=== PATIENT | female | born 1945 | race Caucasian/White ===

== ENCOUNTER 2019-09-09 09:52 | Day surgery (SDC) | payer MEDICARE ==
[2019-09-06 12:44] LABS: BASOPHILS % (AUTO) 0.4 % (0.0-5.0); EOSINOPHILS % (AUTO) 3.1 % (0.0-8.0); HEMATOCRIT 44.2 % (36-48); LYMPHOCYTES % (AUTO) 25.5 % (21.0-51.0); MEAN CORPUSCULAR HEMOGLOBIN 32.1 pg (27.0-33.0); MEAN CORPUSCULAR HGB CONC 33.3 g/dL (32.0-36.0); MEAN CORPUSCULAR VOLUME 96.4 fL (79-99); MONOCYTES % (AUTO) 8.1 % (3.0-13.0); NEUTROPHILS % (AUTO) 62.9 % (40.0-77.0); PLATELET COUNT (AUTO) 149 K/uL (130-400); RED BLOOD CELL COUNT(AUTO) 4.58 MIL/uL (4.00-5.50); RED CELL DISTRIBUTION WIDTH 12.4 % (11.0-15.5); WHITE BLOOD COUNT (AUTO) 5.9 K/uL (4.8-10.8)
[2019-09-06 12:52] VITALS: BP 132/60
[2019-09-06 12:57] LABS: CREATININE 0.6 mg/dL (0.5-1.5); POTASSIUM 4.8 mmol/L (3.5-5.1)
--- NOTE | 2019-09-08 14:09 | NUR ---
SPOKE TO PT. NOTIFIED OF CHANGE OF ARRIVAL TIME TO 1030 ON 09-09-[address] JUNG REQUEST TO START EARLIER THAN WAS PREVIOUSLY INSTRUCTED. PT AGREED.
[~2019-09-09] VITALS: Ht 158.8 cm; Wt 52.2 kg
[2019-09-09] VITALS (16 sets, daily range): BP systolic 76–149; BP diastolic 50–89
[~2019-09-09 09:52] MED LIST: CALC1TAB2 PO
[2019-09-09] MEDS: CEFTRIAXONE SODIUM 1 GM IVP SCH ×2 (11:00→16:08)
[2019-09-09] MEDS ORDERED: LACTATED RINGERS 1000ML 1,000 ML IV ONE (11:26)
[2019-09-09] MEDS ORDERED: IOHEXOL-350 50ML VIAL IV ONE (14:37)
[2019-09-09] MEDS ORDERED: PROPOFOL 10 MG/ML 20ML VIAL IV ONE (15:48)
[2019-09-09] MEDS ORDERED: LIDOCAINE PF 2% 5ML ABBOJECT ONE (15:48)
[2019-09-09] MEDS ORDERED: FENTANYL CITRATE PF 50 MCG/1 ML 2ML VIAL ONE ×2 (15:48→17:11)
[2019-09-09] MEDS ORDERED: ONDANSETRON HCL 4 MG/2 ML VIAL ONE (17:34)
[2019-09-09] MEDS ORDERED: OPIUM/BELLADONNA ALKALOIDS 1 EACH SUPP.RECT RC ONE (17:36)
[2019-09-09] MEDS ORDERED: MEPERIDINE-PF 25 MG/ML SYG ONE ×2 (18:23→18:36)
--- NOTE | 2019-09-09 18:26 | NUR ---
PT MEDICATED FOR PAIN. BERTO PASCUAL TO ASSESS PT, WHO IS COMPLAINING OF VAGINAL SORENESS/PAIN. [facility]TER EXAMINED, PT WITH BLOOD TINGED URINE. Addendum: 09/09/19 at 1850 by SANDEE ROSARIO RN RN Amended: Links added.
--- NOTE | 2019-09-09 18:45 | NUR ---
DR. RUBIO AWARE OF BLOOD IN URINE. NO NEW ORDERS GIVEN. Addendum: 09/09/19 at 1918 by SANDEE ROSARIO RN RN Amended: Links added. Addendum: 09/09/19 at 1943 by SANDEE ROSARIO RN RN DR. RUBIO ALSO NOTIFIED ELEUTERIO LACY, AT THIS TIME.
--- NOTE | 2019-09-09 19:30 | NUR ---
REPORT GIVEN TO ANKUR PLEITEZ, AND TO LOOK AT [facility]. CHECK FOR CLOTS AND INCREASE BLEEDING AND NOTIFIED DR. RUBIO IF NEED TO. Addendum: 09/09/19 at 1951 by SANDEE ROSARIO RN RN Amended: Links added.
[2019-09-09] MEDS ORDERED: PHENAZOPYRIDINE HCL 200 MG TABLET ONE (19:46)
== END 2019-09-09 20:09 | disposition home or self-care (01) ==
LOC: DAH 09:52
PROVIDERS: ATTEND Urology
DX: R31.0 Gross hematuria (principal); C67.2 Malignant neoplasm of lateral wall of bladder; C67.0 Malignant neoplasm of trigone of bladder; M81.0 Age-related osteoporosis without current pathological fracture; Z85.828 Personal history of other malignant neoplasm of skin; Z98.890 Other specified postprocedural states; Z90.49 Acquired absence of other specified parts of digestive tract; Z79.899 Other long term (current) drug therapy; Z87.891 Personal history of nicotine dependence
CPT/HCPCS: 36415; 52240; 74420; 80048; 85025; 88305; A4213; A4215; A4221; A4222; A4223; A4344; A4354; A4358; A4510; A4600; A4663; A6260; C1758; J0696; J2001; J2175 ×2; J2405; J2704; J3010 ×2; J7120 ×2; Q9967